=== PATIENT | female | born 1950 | race Two or more races ===

== ENCOUNTER 2017-12-10 23:57 | Emergency (ER) | payer OTHER ==
[~2017-12-10] VITALS: Ht 152.4 cm; Wt 90.7 kg
[~2017-12-10 23:57] MED LIST: AMARIL PO; AMBIEN5 MG; ASA-EC81 MG PO; AVANDAMET 4 MG/1 TA1 PO; BUSPAR5 MG PO; CENTRUM TABLET1 TAB PO; CYMBALTA20 MG; HUMALOG100 U/M1; JANUMET 50-1,1 UDTAB; LEVEMIR100 U/M1; LIPITOR20 MG; LUNESTA2 MG PO; MONOPRIL20 MG PO; NEURONTIN300 MG PO; NEURONTIN600 MG; PLAVIX75 MG PO; PRISTIQ PO
[2017-12-11] MEDS ORDERED: XOPENEX0.63 MG/3 IH (05:19)
[2017-12-11] MEDS ORDERED: ZYNCOF 20-400120 ML PO (05:19)
== END 2017-12-11 | disposition home or self-care (01) ==
LOC: ER 23:57
DX: J98.01 Acute bronchospasm (principal); G45.9 Transient cerebral ischemic attack, unspecified

== ENCOUNTER 2018-03-25 15:05 | Outpatient (CLI) | payer OTHER ==
[~2018-03-25 15:05] MED LIST changes: +XOPENEX0.63 MG/3 IH; +ZYNCOF 20-400120 ML PO
== END 2018-03-25 15:19 | disposition home or self-care (01) ==
LOC: RAD 501 15:05
DX: M25.561 Pain in right knee (principal); M25.562 Pain in left knee

== ENCOUNTER 2018-08-18 13:53 | Outpatient (CLI) | payer OTHER | END 2018-08-18 17:00 | disposition home or self-care (01) | LOC: TOM 13:53 | DX: J84.112 Idiopathic pulmonary fibrosis (principal) ==

== ENCOUNTER 2018-12-06 02:50 | Emergency (ER) | payer OTHER ==
[~2018-12-06] VITALS: Ht 152.4 cm; Wt 90.7 kg
[2018-12-06] MEDS ORDERED: LEVEMIR (03:30)
[2018-12-06] MEDS ORDERED: LEVEMIR FL100 UNIT/1 SUBCUTANEO ×3 (07:31→07:35)
== END 2018-12-06 08:08 | disposition home or self-care (01) ==
LOC: ER 02:50
DX: T38.3X1A Poisoning by insulin and oral hypoglycemic [antidiabetic] drugs, accidental (unintentional), initial encounter (principal)

== ENCOUNTER 2019-04-11 08:49 | Outpatient (CLI) | payer OTHER ==
[~2019-04-11 08:49] MED LIST changes: +LEVEMIR; +LEVEMIR FL100 UNIT/1 SUBCUTANEO
== END 2019-04-11 09:00 | disposition home or self-care (01) ==
LOC: SONOGRAMA 08:49 → MAMO-SONO 09:15
DX: R10.84 Generalized abdominal pain (principal)

== ENCOUNTER 2019-10-03 09:55 | Outpatient (CLI) | payer OTHER | END 2019-10-03 10:33 | disposition home or self-care (01) | LOC: RAD 09:55 | DX: M16.0 Bilateral primary osteoarthritis of hip (principal); M79.621 Pain in right upper arm ==

== ENCOUNTER 2020-12-28 12:08 | Inpatient (IN) | payer OTHER ==
[~2020-12-28] VITALS: Ht 152.4 cm; Wt 96.6 kg
[2021-01-09] MEDS ORDERED: RISPERIDONE0.5 MG (09:51)
[2021-01-09] MEDS ORDERED: BUMETANIDE1 MG (09:52)
[2021-01-09] MEDS ORDERED: FLUCONAZOLE150 MG (09:52)
[2021-01-09] MEDS ORDERED: METFORMIN HCL1000 M3 (09:52)
[2021-01-09] MEDS ORDERED: CARVEDILOL25 M1 (09:52)
[2021-01-09] MEDS ORDERED: LANTUS SOL100 UNIT/1 (09:53)
[2021-01-09] MEDS ORDERED: ENTRESTO 24 MG1 EACH (09:53)
[2021-01-09] MEDS ORDERED: SPIRONOLACTONE25 MG (09:53)
[2021-01-09] MEDS ORDERED: FAMOTIDINE20 MG (09:53)
[2021-01-09] MEDS ORDERED: FOLIC ACID1 MG (09:53)
[2021-01-09] MEDS ORDERED: GLIPIZIDE ER10 MG (09:54)
[2021-01-09] MEDS ORDERED: VENTOLIN HFA18 GM (09:54)
[2021-01-09] MEDS ORDERED: GLIMEPIRIDE1 MG (09:55)
== END 2021-01-15 15:02 | disposition home or self-care (01) | DRG 391 ==
LOC: ER 12:08 → MEDJ 18:22 → SEC-K 18:22 → MEDJ 12-29 08:46
PROVIDERS: ADMIT Internal Medicine Cardiovascular Disease; ATTEND Internal Medicine Cardiovascular Disease
PROC: BW28ZZZ Computerized Tomography (CT Scan) of Head (ICD-10-PCS; 2020-12-28)
PROC: BW28ZZZ Computerized Tomography (CT Scan) of Head (ICD-10-PCS; 2020-12-30)
PROC: 02HV33Z Insertion of Infusion Device into Superior Vena Cava, Percutaneous Approach (ICD-10-PCS; principal; 2021-01-03)
PROC: BW28ZZZ Computerized Tomography (CT Scan) of Head (ICD-10-PCS; 2021-01-05)
PROC: 4A12X4Z Monitoring of Cardiac Electrical Activity, External Approach (ICD-10-PCS; 2021-01-15)
DX: K57.32 Diverticulitis of large intestine without perforation or abscess without bleeding (principal); I63.512 Cerebral infarction due to unspecified occlusion or stenosis of left middle cerebral artery; J69.0 Pneumonitis due to inhalation of food and vomit; I42.0 Dilated cardiomyopathy; G81.91 Hemiplegia, unspecified affecting right dominant side; R47.01 Aphasia; I11.0 Hypertensive heart disease with heart failure; I50.9 Heart failure, unspecified; Z95.810 Presence of automatic (implantable) cardiac defibrillator; Z79.4 Long term (current) use of insulin; E11.65 Type 2 diabetes mellitus with hyperglycemia; Z20.822 Contact with and (suspected) exposure to COVID-19
CPT/HCPCS: 70496

== ENCOUNTER 2021-01-23 03:34 | Inpatient (IN) | payer OTHER ==
[~2021-01-23] VITALS: Ht 152.4 cm; Wt 96.6 kg
[~2021-01-23 03:34] MED LIST changes: +BUMETANIDE1 MG; +CARVEDILOL25 M1; +ENTRESTO 24 MG1 EACH; +FAMOTIDINE20 MG; +FLUCONAZOLE150 MG; +FOLIC ACID1 MG; +GLIMEPIRIDE1 MG; +GLIPIZIDE ER10 MG; +LANTUS SOL100 UNIT/1; +METFORMIN HCL1000 M3; +RISPERIDONE0.5 MG; +SPIRONOLACTONE25 MG; +VENTOLIN HFA18 GM
== END 2021-03-11 14:53 | DRG 177 ==
LOC: ER 03:34 → ICU-2 07:29 → ICU 01-25 13:36 → MEDJ 02-09 15:06
PROVIDERS: ADMIT Internal Medicine Cardiovascular Disease; ATTEND Internal Medicine Cardiovascular Disease
PROC: 4A033R1 Measurement of Arterial Saturation, Peripheral, Percutaneous Approach (ICD-10-PCS; 2021-01-23)
PROC: 5A09557 Assistance with Respiratory Ventilation, Greater than 96 Consecutive Hours, Continuous Positive Airway Pressure (ICD-10-PCS; 2021-01-24)
PROC: 02HV33Z Insertion of Infusion Device into Superior Vena Cava, Percutaneous Approach (ICD-10-PCS; 2021-01-24)
PROC: 30233N1 Transfusion of Nonautologous Red Blood Cells into Peripheral Vein, Percutaneous Approach (ICD-10-PCS; 2021-01-29)
PROC: 0DH63UZ Insertion of Feeding Device into Stomach, Percutaneous Approach (ICD-10-PCS; principal; 2021-02-06)
PROC: 4A12X4Z Monitoring of Cardiac Electrical Activity, External Approach (ICD-10-PCS; 2021-02-09)
PROC: 0HD6XZZ Extraction of Back Skin, External Approach (ICD-10-PCS; 2021-02-22)
DX: J69.0 Pneumonitis due to inhalation of food and vomit (principal); E11.00 Type 2 diabetes mellitus with hyperosmolarity without nonketotic hyperglycemic-hyperosmolar coma (NKHHC); J96.01 Acute respiratory failure with hypoxia; I42.0 Dilated cardiomyopathy; N17.8 Other acute kidney failure; I69.851 Hemiplegia and hemiparesis following other cerebrovascular disease affecting right dominant side; I50.9 Heart failure, unspecified; E11.65 Type 2 diabetes mellitus with hyperglycemia; R13.19 Other dysphagia; I48.91 Unspecified atrial fibrillation; F32.9 Major depressive disorder, single episode, unspecified; E86.0 Dehydration; Z95.810 Presence of automatic (implantable) cardiac defibrillator; Z79.4 Long term (current) use of insulin; Z74.01 Bed confinement status; Z20.822 Contact with and (suspected) exposure to COVID-19; G47.30 Sleep apnea, unspecified; L89.152 Pressure ulcer of sacral region, stage 2; E87.6 Hypokalemia

== ENCOUNTER 2021-03-30 19:34 | Emergency (ER) | payer OTHER ==
[~2021-03-30] VITALS: Ht 162.6 cm; Wt 86.2 kg
[2021-03-31] MEDS ORDERED: CEPHALEXIN250 MG/5 M PO (01:53)
== END 2021-03-30 23:37 | disposition home or self-care (01) ==
LOC: ER 19:34
DX: R53.1 Weakness (principal); N39.0 Urinary tract infection, site not specified; B96.1 Klebsiella pneumoniae [K. pneumoniae] as the cause of diseases classified elsewhere

== ENCOUNTER 2021-11-29 11:21 | Inpatient (IN) | payer OTHER ==
[~2021-11-29] VITALS: Ht 152.4 cm; Wt 81.6 kg
[~2021-11-29 11:21] MED LIST changes: +CEPHALEXIN250 MG/5 M PO
== END 2021-12-01 18:08 | disposition home or self-care (01) | DRG 393 ==
LOC: ER 11:21 → SURH 17:40 → SURG 17:40 → SEC-K 19:22 → SURH 20:40
PROVIDERS: ADMIT Internal Medicine; ATTEND Internal Medicine
PROC: 0DP68UZ Removal of Feeding Device from Stomach, Via Natural or Artificial Opening Endoscopic (ICD-10-PCS; principal; 2021-11-30)
PROC: 0DH68UZ Insertion of Feeding Device into Stomach, Via Natural or Artificial Opening Endoscopic (ICD-10-PCS; 2021-11-30)
DX: K94.23 Gastrostomy malfunction (principal); L89.153 Pressure ulcer of sacral region, stage 3; G81.91 Hemiplegia, unspecified affecting right dominant side; R13.19 Other dysphagia; Z74.01 Bed confinement status; Z20.822 Contact with and (suspected) exposure to COVID-19; I11.0 Hypertensive heart disease with heart failure; I50.9 Heart failure, unspecified; E11.9 Type 2 diabetes mellitus without complications; Z79.4 Long term (current) use of insulin; R41.82 Altered mental status, unspecified; L08.9 Local infection of the skin and subcutaneous tissue, unspecified; B96.4 Proteus (mirabilis) (morganii) as the cause of diseases classified elsewhere; B96.20 Unspecified Escherichia coli [E. coli] as the cause of diseases classified elsewhere; B96.89 Other specified bacterial agents as the cause of diseases classified elsewhere

== ENCOUNTER 2022-09-17 15:00 | Emergency (ER) | payer OTHER ==
[~2022-09-17] VITALS: Ht 160 cm; Wt 10.0 kg
== END 2022-09-17 20:51 | disposition home or self-care (01) ==
LOC: ER 15:00
DX: K94.23 Gastrostomy malfunction (principal); I12.0 Hypertensive chronic kidney disease with stage 5 chronic kidney disease or end stage renal disease; N18.6 End stage renal disease; Z99.2 Dependence on renal dialysis; Z88.2 Allergy status to sulfonamides; L93.2 Other local lupus erythematosus; Z20.822 Contact with and (suspected) exposure to COVID-19

== ENCOUNTER 2023-04-11 18:07 | Emergency (ER) | payer OTHER ==
[~2023-04-11] VITALS: Ht 167.6 cm; Wt 90.7 kg
== END 2023-04-11 22:11 | disposition home or self-care (01) ==
LOC: ER 18:07
DX: K94.23 Gastrostomy malfunction (principal); Z88.2 Allergy status to sulfonamides; E11.9 Type 2 diabetes mellitus without complications; Z79.4 Long term (current) use of insulin; I11.9 Hypertensive heart disease without heart failure